=== PATIENT | female | born 1985 | race Caucasian/White ===

== ENCOUNTER 2019-11-18 08:24 | Emergency (ER) | payer MEDICAID ==
[~2019-11-18] VITALS: Ht 160 cm; Wt 62.0 kg
[2019-11-18 08:33] VITALS: BP 122/86
[2019-11-18] MEDS ORDERED: ACYC-202 PO (08:50)
[2019-11-18] MEDS ORDERED: NYST1000 PO (08:50)
== END 2019-11-18 09:02 | disposition home or self-care (01) ==
LOC: ER 08:25
DX: B00.2 Herpesviral gingivostomatitis and pharyngotonsillitis (principal); B37.9 Candidiasis, unspecified; Z79.899 Other long term (current) drug therapy
CPT/HCPCS: 99283